=== PATIENT | male | born 1950 | race Caucasian/White ===

== ENCOUNTER 2020-10-05 16:26 | Emergency (ER) | payer MEDICARE ==
[~2020-10-05 16:26] MED LIST: ALDACTONE25 MG PO; CRESTOR20 MG PO; HUMULIN 70100 UNIT/1 SC; JANTOVEN6 MG PO; JANUVIA 50 MG T50 MG PO; KLOR-CON M2020 MEQ PO; LASIX80 MG PO; LEVEMIR100 UNIT/1 SQ; LOPRESSOR50 MG PO; NOVOLOG100 UNIT/1 SQ; PRAVACHOL40 MG PO; SILDENAFIL20 MG PO; SYNTHROID100 MCG PO; ULTRAM50 MG PO; WARFARIN SODIUM5 MG PO; ZAROXOLYN/DIUL2.5 MG PO; ZOLOFT25 MG PO; ZYLOPRIM 300 M300 MG PO
[2020-10-05 17:17] LABS: HEMOGLOBIN 10.9 gm/dl (14.0-17.5); RED BLOOD COUNT 4.46 M/UL (4.20-5.50)
[2020-10-05 17:40] LABS: WHITE BLOOD COUNT 41.7 K/UL (4.5-11.0)
[2020-10-05 17:43] LABS: BUN/CREATININE RATIO 30 (0-10)
[2020-10-06 10:16] LABS: ACINETOBACTER BAUMANNII Not Detected (Negative); CANDIDA ALBICANS Not Detected (Negative); CANDIDA KRUSEI Not Detected (Negative); CANDIDA TROPICALIS Not Detected (Negative); ENTEROCOCCUS Not Detected (Negative); ESCHERICHIA COLI Not Detected (Negative); HAEMOPHILUS INFLUENZAE Not Detected (Negative); KLEBSIELLA OXYTOCA Not Detected (Negative); KLEBSIELLA PNEUMONIAE Not Detected (Negative); KPC-CARBAPENEM-RESISTANCE GENE Not Detected (Negative); PROTEUS Not Detected (Negative); PSEUDOMONAS AERUGINOSA Not Detected (Negative); SERRATIA MARCESANS Not Detected (Negative); STREP AGALACTIAE (GROUP B) Not Detected (Negative); STREP PYOGENES (GROUP A) Not Detected (Negative); STREPTOCOCCUS Not Detected (Negative); mecA (METHICILLIN RESIST GENE Not Detected (Negative); vanA/B (VANCOMYCIN RESIST GENE Not Detected (Negative)
[2020-10-06 13:02] LABS: STAPHYLOCOCCUS DETECTED (Negative); STAPHYLOCOCCUS AUREUS DETECTED (Negative)
== END 2020-10-06 | disposition short-term general hospital (02) ==
LOC: ER1 16:26
PROVIDERS: Family Medicine
DX: A41.9 Sepsis, unspecified organism (principal); R65.20 Severe sepsis without septic shock; E11.22 Type 2 diabetes mellitus with diabetic chronic kidney disease; I50.30 Unspecified diastolic (congestive) heart failure; I48.91 Unspecified atrial fibrillation; J18.9 Pneumonia, unspecified organism; N18.9 Chronic kidney disease, unspecified; Z79.01 Long term (current) use of anticoagulants; Z79.4 Long term (current) use of insulin; Z20.822 Contact with and (suspected) exposure to COVID-19; E03.9 Hypothyroidism, unspecified; E66.01 Morbid (severe) obesity due to excess calories; D72.829 Elevated white blood cell count, unspecified; R74.02 Elevation of levels of lactic acid dehydrogenase [LDH]; Z88.8 Allergy status to other drugs, medicaments and biological substances; Z79.899 Other long term (current) drug therapy
CPT/HCPCS: 36415; 36600; 71045; 80053; 81001; 82550; 82553; 82803; 83605; 83690; 83874; 83880; 84439; 84443; 84484; 85025; 85610; 87040; 87077; 87150; 87186; 93005; 96374; 96375; 99285; J0456; J0696; J2270; J2405; J7030; U0002